=== PATIENT | female | born 1955 | race Hispanic/Latino ===

== ENCOUNTER 2019-10-28 10:05 | Outpatient (CLI) | payer MEDICAID, OTHER | END 2019-10-28 10:06 | disposition home or self-care (01) | LOC: LABHHL 10:05 | PROVIDERS: ATTEND Surgery | DX: N63.14 Unspecified lump in the right breast, lower inner quadrant (principal) | CPT/HCPCS: 88305; 88341; 88342; 88361 ==

== ENCOUNTER 2019-12-07 16:05 | Outpatient (CLI) | payer MEDICAID ==
--- NOTE | 2019-12-07 18:51 | XRay Report ---
CHEST 2 VIEWS INDICATION / CLINICAL INFORMATION: BREAST CANCER. COMPARISON: None available. FINDINGS: SUPPORT DEVICES: None. HEART / MEDIASTINUM: No significant abnormality. LUNGS / PLEURA: No significant pulmonary or pleural abnormality. No pneumothorax. ADDITIONAL FINDINGS: No significant additional findings. IMPRESSION: 1. No acute findings. Signer Name: Lina Bhatti MD Signed: 12/07/2019 6:47 PM Workstation Name: [id number]
== END 2019-12-07 16:06 | disposition home or self-care (01) ==
LOC: XRAY 16:05
PROVIDERS: ATTEND Surgery
DX: C50.919 Malignant neoplasm of unspecified site of unspecified female breast (principal)
CPT/HCPCS: 71046

== ENCOUNTER 2019-12-27 07:11 | Day surgery (SDC) | payer MEDICAID ==
[2019-12-27] MEDS ORDERED: ceFAZolin/STERILE WATER 2 GM/20 ML SYRINGE IV NR (08:00)
--- NOTE | 2019-12-27 08:05 | Anesthesia Day of Surgery ---
Anesthesia Day of Surgery - Day of Surgery Patient Examined: Yes Patient H&P Reviewed: Yes Patient is NPO: Yes
--- NOTE | 2019-12-27 08:07 | Anesthesia Consultation ---
Anesthesia Consult and Med Hx Date of service: 12/27/19 - Airway Anesthetic Teeth Evaluation: Good, Partials ROM Head & Neck: Adequate Mental/Hyoid Distance: Adequate Mallampati Class: Class III Intubation Access Assessment: Probably Good - Pre-Operative Health Status ASA Pre-Surgery Classification: ASA2 Proposed Anesthetic Plan: General (MAC; GA if needed), MAC - Pulmonary Hx Smoking: Yes (SINCE AGE 40; DOWN TO 1-2CIG/DAY) Hx Respiratory Symptoms: No (Mild pulmonary HTN) COPD: Yes - Cardiovascular System Hx Hypertension: Yes (SINCE 1979. ECHO [id number]) - Central Nervous System Hx Back Pain: Yes (? RA; denies neck issues) Hx Psychiatric Problems: (POSSIBLE???) - Endocrine Hx Liver Disease: Yes (Hep C) - Other Systems Hx Alcohol Use: No Hx Substance Use: No Hx Cancer: Yes
[2019-12-27] MEDS ORDERED: LIDOCAINE MPF (2%) 20 MG/1 ML VIAL 5 ML ONE (08:33)
[2019-12-27] MEDS ORDERED: fentaNYL 100 MCG/2 ML INJ ONE (08:33)
[2019-12-27] MEDS ORDERED: PROPOFOL 200 MG/20 ML VIAL IV ONE (08:34)
[2019-12-27] MEDS ORDERED: ONDANSETRON 4 MG/2 ML INJ ONE (08:35)
[2019-12-27] MEDS ORDERED: dexAMETHasone 20 MG/5 ML VIAL ONE (08:35)
[2019-12-27] MEDS ORDERED: MIDAZOLAM 2 MG/2 ML INJ IV NR (09:00)
[2019-12-27] MEDS ORDERED: LACTATED RINGERS 1,000 ML IV SCH (09:00)
[2019-12-27] MEDS ORDERED: HEPARIN 10,000 UNITS/10 ML VIAL ONE (09:09)
[2019-12-27] MEDS ORDERED: LIDOCAINE (1%) 10 MG/1 ML VIAL 20 ML MDV ONE (09:09)
[2019-12-27] MEDS ORDERED: BUPIVACAINE/PF (0.25%) 2.5 MG/ML 30 ML VIAL INFILTRATI ONE ×3 (09:09→10:00)
[2019-12-27] MEDS ORDERED: SODIUM CHLORIDE 0.9% 100 ML ONE (09:10)
[2019-12-27] MEDS ORDERED: ePHEDrine SULFATE 50 MG/1 ML INJ ONE (09:51)
[2019-12-27] MEDS ORDERED: HEPARIN 10,000 UNITS/10 ML VIAL IV ONE (09:59)
[2019-12-27] MEDS ORDERED: SODIUM CHLORIDE 0.9% 100 ML IVPB IV ONE (10:00)
[2019-12-27] MEDS ORDERED: SODIUM CHLORIDE 0.9% IRR 1,500 ML BOTTLE IR ONE (10:01)
[2019-12-27] MEDS ORDERED: LIDOCAINE (1%) 10 MG/1 ML VIAL 20 ML MDV INFILTRATI ONE (10:01)
[2019-12-27] MEDS ORDERED: KETOROLAC 30 MG/1 ML INJ ONE (10:30)
--- NOTE | 2019-12-27 10:46 | Short Stay Summary ---
Short Stay Documentation Date of service: 12/27/19 - History Principal diagnosis: right breast cancer H&P: obtained from office - Allergies and Medications Current Medications: Allergies No Known Allergies Allergy (Verified 12/23/19 10:58) Home Medications Medication Instructions Recorded Confirmed Last Taken Type HYDROcodone/APAP 5-325 [[place] 1 each PO Q6HR PRN #10 tablet 03/04/14 12/27/19 Unknown Rx 5/325 mg] Ascorbic Acid [Vitamin C] 1,000 mg PO DAILY 12/23/19 12/27/19 12/26/19 08:00 History Aspirin 325 mg PO QDAY 12/23/19 12/27/19 12/22/19 08:00 History Calcium Carbonate [Oscal 1250MG 1,250 mg PO DAILY 12/23/19 12/27/19 12/26/19 08:00 History TAB] Cyanocobalamin (Vitamin B-12) 1,000 mcg PO DAILY 12/23/19 12/27/19 12/26/19 08:00 History [Vitamin B-12] Ferrous Sulfate [Feosol] 325 mg PO QDAY 12/23/19 12/27/19 12/26/19 08:00 History Losartan [Cozaar] 50 mg PO QDAY 12/23/19 12/27/19 12/26/19 08:00 History Magnesium 250 mg PO DAILY 12/23/19 12/27/19 12/26/19 08:00 History Vitamin E 400 unit PO DAILY 12/23/19 12/27/19 12/26/19 08:00 History hydroCHLOROthiazide [HCTZ] 25 mg PO QDAY 12/23/19 12/27/19 12/26/19 08:00 History Active Medications Cefazolin Sodium (Ancef/Sterile Water 2 Gm/20 Ml) 2 gm IV PREOP NR Stop: 12/27/19 21:00 Lactated Ringer's (Lactated Ringers) 1,000 mls @ 100 mls/hr IV DIRECT [place] Last Admin: 12/27/19 08:25 Dose: 100 mls/hr Documented by: Midazolam HCl (Versed) 2 mg IV PREOP NR Stop: 12/27/19 23:59 Last Admin: 12/27/19 08:45 Dose: 2 mg Documented by: - Brief post op/procedure progress note Date of procedure: 12/27/19 Pre-op diagnosis: right breast cancer Post-op diagnosis: same Procedure: left internal jugular port a cath placement with mindray ultrasound guidance Anesthesia: GETA (LMA), local Findings: Good placement of port without PTX Surgeon: KENNETH HELMS Estimated blood loss: minimal Pathology: none Condition: stable - Hospital course Hospital course: Pt observed in PACU and discharged to home in stable condition - Disposition Condition at discharge: Good Disposition: DC-01 TO HOME OR SELFCARE Short Stay Discharge Plan Activity: no restrictions Diet: regular Wound: open to air, per your surgeon's advice Additional Instructions: SEE PRINTED INSTRUCTIONS Follow up with: PRIMARY CARE,MD [Primary Care Provider] - 7 Days KENNETH HELMS DO [Staff Physician] - 10 Days Prescriptions: HYDROcodone/APAP 5-325 [[place] 5-325 mg TAB] 1 each PO Q6HR PRN #10 tablet PRN Reason: Pain
[2019-12-27] MEDS ORDERED: PHENYLEPHRINE/NS 1,000 MCG/10 ML SYRINGE (OR USE) IV ONE (10:49)
[2019-12-27] MEDS ORDERED: SODIUM CHLORIDE FOR INHALATION NEBU 3 ML ONE (11:01)
--- NOTE | 2019-12-27 11:20 | XRay Report ---
CHEST 1 VIEW INDICATION: INSERTION OF PORT. COMPARISON: 12/07/2019 FINDINGS: Support devices: A left Yydssn-c-Jgsw has been inserted and the tip is in the right atrium. Heart: Within normal limits. Pulmonary vasculature: Normal. Lungs/Pleura: No acute air space or interstitial disease. Additional findings: None. IMPRESSION: 1. Satisfactory port placement. 2. No other significant finding. Signer Name: Michele Singer MD Signed: 12/27/2019 11:15 AM Workstation Name: [id number]
[2019-12-27] MEDS ORDERED: ALBUTEROL 2.5 MG/3 ML NEBU IH ONE (11:30)
[2019-12-27 11:36] VITALS: BP 133/69
--- NOTE | 2019-12-27 11:39 | Fluoroscopy Report ---
INTRAOPERATIVE FLUOROSCOPY: PORT PLACEMENT INDICATION / CLINICAL INFORMATION: LEFT BREAST CANCER. TECHNIQUE: Intraoperative spot images were obtained during the procedure. FINDINGS: Images show placement of a left IJ central venous port. Fluoroscopy Time: 0.4 minutes. Fluoroscopy Images: 2. Signer Name: Ar Oh MD Signed: 12/27/2019 11:34 AM Workstation Name: [id number]
--- NOTE | 2019-12-27 18:10 | Post Anesthesia Evaluation ---
- Post Anesthesia Evaluation Patient Participated: Yes Airway Patent: Yes Stable Respiratory Function: Yes Nausea/Vomiting: No Temp > 96.8F: Yes Pain Manageable: Yes Adequeate Hydration: Yes Anesthesia Complications: No Block Receding Appropriately: Not Applicable Patient on Ventilator: No
--- NOTE | 2019-12-30 09:14 | Operative Report ---
Operative Report Operative Report: Date of procedure: 12/27/19 Pre-op diagnosis: right breast cancer Post-op diagnosis: same Procedure: left internal jugular port a cath placement with mindray ultrasound guidance Anesthesia: GETA (LMA), local Findings: Good placement of port without PTX Surgeon: KENNETH HELMS Estimated blood loss: minimal Pathology: none Condition: stable - Hospital course Hospital course: Pt observed in PACU and discharged to home in stable condition HPI and indication: Patient is a 64-year-old female who has been diagnosed with right breast cancer with skin involvement. The patient is seen by oncology and deemed a candidate for chemotherapy. All of the risks associated with the procedure were discussed with the patient including but not limited to pneumothorax, infection, bleeding, malpositioned port, injury to other structures. The patient understands and all questions were answered. Consent was signed and placed on chart. Procedure in detail: The patient was identified in the preoperative area, taken back to operating room, placed on operating table in supine position. After anesthesia was induced both arms were tucked and upper chest and neck were prepped and draped in usual sterile fashion. A timeout was performed. The was placed in Trendelenburg position. Local anesthetic was infiltrated into the skin at the intended puncture site. The left subclavian vein was visualized on bedside ultrasound and one attempt was made at access. I could not access the vein and therefore the left internal jugular vein was identified on bedside ultrasound. The left internal jugular vein was accessed on the first stick. There was return of dark red, nonpulsatile blood. The wire was threaded under fluoroscopy without resistance and positioning confirmed. The needle was then removed. Using a 15 blade, an incision was made in the LEFT upper chest and dissection carried down through the skin and subcutaneous tissue using Bovie electrocautery. Hemostasis was achieved along the way. A pocket for the port was then created bluntly and with electrocautery. The catheter was flushed and tunneled from the pocket to the wire. A breakaway catheter/dilator sheath then inserted over the wire under fluoroscopy, and the wire and dilator removed. The catheter was then inserted through the breakaway catheter which was then removed. The catheter sat flush under the skin. Using continuous fluoroscopy, the catheter was pulled back until the tip was visualized in the right atrium. The catheter was then cut to size and the port attached in the usual fashion. The port was then sutured into place to the pre-pectoral fascia using 2-0 Vicryl interrupted sutures. The wound was irrigated and hemostasis ensured. The port was tested with heparinized saline and there was return of blood and it flushed easily. The port was then instilled with 3000 units of straight heparin. The deep dermal layer was then closed with interrupted 3-0 Vicryl stitches. The skin incisions were closed with 4-0 Monocryl subcuticular stitches and skin glue. Intraoperative chest x-ray did show good positioning of the port, without evidence of pneumothorax At the end of the case, all sponge, instrument, sharp counts were correct 2. The patient was awoken from anesthesia and taken to PACU in stable condition.
== END 2019-12-27 12:35 | disposition home or self-care (01) ==
LOC: OR 07:11
PROVIDERS: ATTEND Surgery
DX: C50.411 Malignant neoplasm of upper-outer quadrant of right female breast (principal); C50.111 Malignant neoplasm of central portion of right female breast; C50.811 Malignant neoplasm of overlapping sites of right female breast; I10 Essential (primary) hypertension; J44.9 Chronic obstructive pulmonary disease, unspecified; M06.9 Rheumatoid arthritis, unspecified; F17.210 Nicotine dependence, cigarettes, uncomplicated; Z79.899 Other long term (current) drug therapy; Z79.82 Long term (current) use of aspirin; Z90.710 Acquired absence of both cervix and uterus; Z80.3 Family history of malignant neoplasm of breast; Z80.41 Family history of malignant neoplasm of ovary
CPT/HCPCS: 36561; 71045; 77001; C1788; J0690; J1100; J1644; J1885; J2250; J2370; J2405; J2704; J3010; J7120

== ENCOUNTER 2020-08-07 11:32 | Day surgery (SDC) | payer MEDICARE ==
[~2020-08-07 11:32] MED LIST: CELECOXIB 200 MG CAP PO NR; GABAPENTIN 300 MG CAP PO NR; LACTATED RINGERS 1,000 ML IV SCH; MAGNESIUM OXIDE 400 MG TAB PO SCH; MIDAZOLAM 2 MG/2 ML INJ IV NR; SCOPOLAMINE TRANSDERMAL PATCH 72 HR TD NR; ceFAZolin/Water 2 GM/20 ML 2 GM/20 ML SYRINGE IV SCH
[2020-08-07] MEDS ORDERED: HYDROmorphone 1 MG/1 ML INJ IV PRN (12:22)
--- NOTE | 2020-08-07 12:22 | Anesthesia Consultation ---
Anesthesia Consult and Med Hx Date of service: 08/07/20 - Airway Anesthetic Teeth Evaluation: Poor, Partials (upper) ROM Head & Neck: Adequate Mental/Hyoid Distance: Adequate Mallampati Class: Class II Intubation Access Assessment: Probably Good - Pulmonary Exam CTA: Yes - Cardiac Exam Cardiac Exam: RRR - Pre-Operative Health Status ASA Pre-Surgery Classification: ASA3 Proposed Anesthetic Plan: General - Pulmonary Hx Smoking: Yes (X24 YRS- DOWN TO 1-2CIG/DAY) Hx Respiratory Symptoms: No Hx Sleep Apnea: No (JERRY PRE SCREEN LOW RISK) - Cardiovascular System Hx Hypertension: Yes (took atenolol this morning) Hx Heart Attack/AMI: No Hx Percutaneous Transluminal Coronary Angioplasty (PTCA): No Hx Cardia Arrhythmia: No - Central Nervous System CVA: No Hx Back Pain: Yes (WITH MILD RT LEG WEAKNESS) - Gastrointestinal Hx Gastroesophageal Reflux Disease: No - Endocrine 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
--- NOTE | 2020-08-07 12:22 | Anesthesia Day of Surgery ---
Anesthesia Day of Surgery - Day of Surgery Patient Examined: Yes Patient H&P Reviewed: Yes Patient is NPO: Yes
[2020-08-07] MEDS ORDERED: propofoL 200 MG/20 ML VIAL IV ONE (13:56)
[2020-08-07] MEDS ORDERED: LIDOCAINE MPF (2%) 20 MG/1 ML VIAL 5 ML ONE (13:56)
[2020-08-07] MEDS ORDERED: HYDROmorphone 1 MG/1 ML INJ ONE (13:56)
[2020-08-07] MEDS ORDERED: ROCURONIUM 50 MG/5 ML INJ IV ONE (13:57)
[2020-08-07] MEDS ORDERED: BUPIVACAINE/PF (0.5%) 5 MG/1 ML 30 ML VIAL INFILTRATI ONE ×2 (14:02→15:46)
[2020-08-07] MEDS ORDERED: LIDOCAINE (1%) 10 MG/1 ML VIAL 20 ML MDV ONE (14:02)
[2020-08-07] MEDS ORDERED: SODIUM CHLORIDE 0.9% 100 ML ONE (15:29)
[2020-08-07] MEDS ORDERED: HEPARIN 10,000 UNITS/10 ML VIAL ONE (15:29)
[2020-08-07] MEDS ORDERED: LIDOCAINE (1%) 10 MG/1 ML VIAL 20 ML MDV INFILTRATI ONE (15:46)
[2020-08-07] MEDS ORDERED: WATER FOR IRRIG STERILE 1,500 ML BOTTLE IR ONE (15:47)
[2020-08-07] MEDS ORDERED: SODIUM CHLORIDE 0.9% IRR 1,500 ML BOTTLE IR ONE (15:47)
[2020-08-07] MEDS ORDERED: SODIUM CHLORIDE 0.9% 100 ML IVPB IV ONE (16:35)
[2020-08-07] MEDS ORDERED: HEPARIN 10,000 UNITS/10 ML VIAL IV ONE (16:35)
[2020-08-07] MEDS ORDERED: KETOROLAC 30 MG/1 ML INJ ONE (16:59)
[2020-08-07] MEDS ORDERED: ONDANSETRON 4 MG/2 ML INJ ONE (16:59)
[2020-08-07] MEDS ORDERED: GLYCOPYRROLATE 0.4 MG/2 ML INJ ONE (16:59)
[2020-08-07] MEDS ORDERED: NEOSTIGMINE 10MG/10 ML INJ MDV ONE (17:00)
[2020-08-07] MEDS ORDERED: LACTATED RINGERS 1,000 ML ONE (17:02)
--- NOTE | 2020-08-07 17:16 | Short Stay Summary ---
Short Stay Documentation Date of service: 08/07/20 - History Principal diagnosis: left inguinal hernia, right breast cancer H&P: obtained from office - Allergies and Medications Current Medications: Allergies No Known Allergies Allergy (Verified 12/23/19 10:58) Home Medications Medication Instructions Recorded Confirmed Last Taken Type Ascorbic Acid [Vitamin C] 1,000 mg PO DAILY 12/23/19 08/07/20 08/06/20 06:00 History Aspirin 325 mg PO QDAY 12/23/19 08/07/20 07/30/20 06:00 History Calcium Carbonate [Oscal 1250MG 1,250 mg PO DAILY 12/23/19 08/07/20 08/06/20 06:00 History TAB] Cyanocobalamin (Vitamin B-12) 1,000 mcg PO DAILY 12/23/19 08/07/20 08/06/20 06:00 History [Vitamin B-12] Ferrous Sulfate [Feosol 325 MG tab] 325 mg PO QDAY 12/23/19 08/07/20 08/06/20 08:00 History Losartan [Cozaar] 50 mg PO QDAY 12/23/19 08/07/20 08/07/20 06:00 History Magnesium 250 mg PO DAILY 12/23/19 08/07/20 08/06/20 06:00 History Vitamin E 400 unit PO DAILY 12/23/19 08/07/20 08/06/20 06:00 History hydroCHLOROthiazide [HCTZ] 25 mg PO QDAY 12/23/19 08/07/20 07/30/20 06:00 History HYDROcodone/APAP 5-325 [[place] 1 each PO Q6HR PRN #10 tablet 12/27/19 08/07/20 12/24/19 08:00 Rx 5-325 mg TAB] atenoloL [Tenormin] 50 mg PO DAILY 08/06/20 08/07/20 08/07/20 06:00 History Active Medications Celecoxib (Celebrex) 200 mg PO PREOP NR Stop: 08/07/20 23:59 Last Admin: 08/07/20 12:20 Dose: 200 mg Documented by: Gabapentin (Gabapentin) 300 mg PO PREOP NR Stop: 08/07/20 23:59 Last Admin: 08/07/20 12:20 Dose: 300 mg Documented by: Hydromorphone HCl (Dilaudid) 0.5 mg IV Q10MIN PRN PRN Reason: Pain , Severe (7-10) Lactated Ringer's (Lactated Ringers) 1,000 mls @ 100 mls/hr IV DIRECT [place] Stop: 08/07/20 23:59 Last Admin: 08/07/20 12:45 Dose: 100 mls/hr Documented by: Cefazolin Sodium (Ancef/Sterile Water 2 Gm/20 Ml) 2 gm in 20 mls @ 80 mls/hr IV PREOP [place] Stop: 08/07/20 23:59 Magnesium Oxide (Mag-Ox) 400 mg PO PREOP [place] Stop: 08/07/20 23:59 Last Admin: 08/07/20 12:20 Dose: 400 mg Documented by: Midazolam HCl (Versed) 2 mg IV PREOP NR Stop: 08/07/20 23:59 Scopolamine (Transderm-Scop) 1 each TD PREOP NR Stop: 08/07/20 23:59 Last Admin: 08/07/20 12:20 Dose: 1 each Documented by: - Brief post op/procedure progress note Date of procedure: 08/07/20 Pre-op diagnosis: Left inguinal hernia, right breast cancer Post-op diagnosis: same Procedure: 1. robotic assisted left inguinal hernia repair with mesh 2. revision of left sided port Anesthesia: GETA, local Findings: 1. direct inguinal hernia containing omentum and lipoma, repair with medium Bard 3D max mesh 2. Port flipped in pocket, blood aspirated easily and port flushed easily Surgeon: KENNETH HELMS (Salome Shepard, TIER TRUCK DRIVER -assist) Estimated blood loss: minimal Pathology: none Condition: stable - Hospital course Hospital course: Pt observed in PACU and discharged to home in stable condition when criteria met - Disposition Condition at discharge: Good Short Stay Discharge Plan Activity: other (NO HEAVY LIFTING FOR 4-6 WEEKS, NOTHING MORE THAN 15 LBS) Diet: regular Wound: open to air, other (SEE ADDITIONAL INSTRUCTIONS SECTION) Additional Instructions: Activity: You are encouraged to walk and may go up and down the steps. Do not do any heavy lifting greater than 15-20lbs for the next 4-[address] if you are taking prescription, narcotic pain medications. Showering: You may shower in 1 day. Pat incision dry. Do not submerge incisions in bathtubs, hot tubs, pools for 2 weeks. Wound care instructions: There is glue on your incision which will fall off on its own. Pain medications: You are encouraged to use over the counter pain medications like Tylenol as directed on the bottle. If your pain is not controlled with these medications, you have been given a prescription for stronger pain medications. Please use as directed. Take the ibuprofen, celebrex, and gabapentin as prescribed, the prescriptions have been sent to your pharmacy. Reasons to call Surgeons office: If you have fevers >100.4 If you are having increasing abdominal pain or vomiting If you have pain that is not controlled with prescription pain medications If you have drainage if pus or redness around the incisions. Follow up with: PRIMARY CARE, [Primary Care Provider] - 7 Days KENNETH HELMS DO [Staff Physician] - 14 Days Prescriptions: Celecoxib [celeBREX] 200 mg PO BID #10 capsule Gabapentin 300 mg PO Q8HR #30 capsule Ibuprofen [Motrin 800 MG tab] 800 mg PO Q8HR #30 tablet oxyCODONE /ACETAMINOPHEN [Percocet 5/325] 1 tab PO Q6HR PRN #20 tablet PRN Reason: Pain , Severe (7-10)
--- NOTE | 2020-08-07 17:49 | Operative Report ---
Operative Report Operative Report: Date of procedure: 08/07/20 Pre-op diagnosis: Left inguinal hernia, right breast cancer Post-op diagnosis: same Procedure: 1. robotic assisted left inguinal hernia repair with mesh 2. revision of left sided port Anesthesia: ERINA, local Findings: 1. direct inguinal hernia containing omentum and lipoma, repair with medium Bard 3D max mesh 2. Port flipped in pocket, blood aspirated easily and port flushed easily Surgeon: KENNETH HELMS (Salome Shepard, DIRT SUPERVISOR -assist) Estimated blood loss: minimal Pathology: none Condition: stable Hospital course: Pt observed in PACU and discharged to home in stable condition when criteria met HPI and indication: Patient is a 65-year-old female with history of stage IV right breast cancer. The patient had undergone a left sided port placement to initiate chemotherapy at the beginning 2019 and was then lost to follow-up du e to patient noncompliance. The patient also had a left inguinal hernia which was reducible for which repair was being delayed until chemotherapy was complete. The patient represented to the office with complaints of persistent discomfort at the site of the left inguinal hernia along with concerns about her port. Upon examination the cutaneous portion of the port was flipped and unable to be repositioned in the office. The case was discussed with Dr. Henriquez the patient's breast surgeon and Dr. Ross the patient's oncologist. It was recommended that the port be revised as the patient would need chemotherapy restarted in the next several weeks. Due to the patient's increasing discomfort at the left inguinal hernia site it was decided that this should be repaired prior to the initiation of chemotherapy. I discussed all risk benefits, alternatives to surgery with the patient and questions were answered. Consent was obtained for robotic assisted left inguinal hernia repair with mesh, possible removal/revision/replacement of left-sided Port-A-Cath. Procedure in detail: The patient was identified in the preoperative area, taken back to the operating room and placed on the operating room table in supine position. After anesthesia was induced a Wong catheter was sterilely placed by the circulating nurse. Both arms were then tucked and all bony prominences padded appropriately. The left groin hair was clipped and the abdomen and left groin prepped and draped in the usual sterile fashion. A timeout was performed. Local anesthetic was infiltrated to skin at the intended incision sites. A jay jay incision was made at the umbilicus through which a Veress needle was inserted. The skin was tented up using towel clips and the Veress needle inserted. The Veress needle position was confirmed using the saline drop test and the abdomen insufflated to 15 mmHg. A supraumbilical incision was then made using an 11 blade through which a 5 mm Optiview trocar was placed. The abdomen was inspected and there was no underlying injury to any of the abdominal structures. The Veress needle was removed. The patient was placed in Trendelenburg and the pelvis inspected. There was an obvious left-sided inguinal hernia containing omental adhesions. An additional 8 mm right upper quadrant and left upper quadrant 8 mm robotic trochars were then placed under direct visualization. The 5 mm supraumbilical trocar was removed and replaced with a 12 mm balloon trocar under direct visualization. A Ray-Caryl was placed into the abdomen and the robot was then docked. A monopolar scissor was placed in arm #1 and a fenestrated bipolar in arm #2. The surgeon was then transferred to the console. A left-sided peritoneal flap was created approximately 6 cm from the left inguinal hernia. The peritoneum was gently scored with a monopolar scissor and the preperitoneal space entered. The preperitoneal space was carefully dissected in an avascular plane using a combination of electrocautery and blunt dissection. Great care was taken to identify the epigastric vessels and to protect them during the entire dissection. First the medial space was dissected and the pubic tubercle identified. The tissue overlying the pubic tubercle was bluntly dissected. I then proceeded to the lateral dissection which was done in a similar fashion. A direct inguinal hernia was encountered. The omental adhesions in the hernia were taken down using electrocautery. There was a large lipoma contained within the defect which was gently dissected using blunt dissection and completely reduced. The round ligament was cauterized with the bipolar and transected. The peritoneal dissection was carried down by dissecting through cremasteric fibers in order to ensure that the mesh would lay flat. Dissection of the femoral space was also performed in order to cover all 3 potential defects. Once the dissection was complete the pocket was checked for hemostasis which was carefully ensured. A left-sided Bard 3D max medium size mesh was then inserted into the abdomen along with suture material by the airplane first officer. The mesh was positioned in the usual fashion. The medial aspect of the mesh was sutured to the pubic tubercle using a 2-0 Vicryl interrupted stitch. The mesh was also fixated to the lateral abdominal wall using an interrupted 2-0 Vicryl stitch. Mesh was seen to lay flat and fit well in the pocket. An Angiocath was inserted lateral to the mesh in the preperitoneal space under direct visualization. The pressure in the abdomen was decreased to 10 mmHg. The peritoneum was then reapproximated using a running 3- 0 VLock suture and came together without tension. A tiny hole in the peritoneum was approximated using an interrupted 2-0 Vicryl stitch. There were no defects in the peritoneum and the mesh was completely covered. The robot was then undocked and the surgeon scrubbed back in. All sharp and suture material was removed under direct visualization. The intra-abdominal Ray-Caryl was also removed. The reduced omentum was checked for hemostasis was carefully ensured. There was no bleeding seen. The 12 mm port was removed and the fascia closed with interrupted 0 Vicryl sutures using the Sean Fernandez. The abdomen was then desufflated and all ports along with the angiocatheter removed. All incisions were once again infiltrated with local anesthetic and skin closed using 4-0 Monocryl subcuticular stitches and Dermabond. A left sided ilioinguinal nerve block was also performed. At the end of this portion of the case all sponge, instrument, sharp counts were correct x2. The patient remained stable. At this point the drapes were removed and the left upper chest was prepped and draped in the usual sterile fashion. The skin at the intended incision site was infiltrated with local anesthetic. An incision was made through the old scar using a 15 blade and dissection carried down through the skin and subcutaneous tissue using Bovie electrocautery until the port and catheter were encountered. The port was freed from the surrounding tissue and capsule using blunt dissection with a hemostat. Once the port was completely freed it was partially brought out of the wound and flipped into the correct position. The port was placed back into the pocket and tested with heparinized saline. The port returned blood easily and flushed with a heparinized saline without resistance. Because the port was still functional no further intervention was needed at this time. The port was instilled with 3000 units of undiluted heparin. The port was sutured to the underlying capsule using 2-0 Vicryl sutures in 2 positions. The pocket was checked for hemostasis which was ensured. The wound was irrigated with saline. The incision was then closed in a layered fashion. The deep dermal layer was closed with interrupted 3-0 Vicryl sutures. The skin was closed with a running 4-0 Monocryl subcuticular stitch and skin glue. Once the glue was dry a 2 x 2 gauze was applied over the incision and secured with a Tegaderm. At the end of the case all sponge, instrument, sharp counts were correct x2. The Wong catheter was removed. The patient was awoken from anesthesia extubated and taken to PACU in stable condition.
--- NOTE | 2020-08-07 18:12 | Post Anesthesia Evaluation ---
- Post Anesthesia Evaluation Patient Participated: Yes Airway Patent: Yes Stable Respiratory Function: Yes Nausea/Vomiting: No Temp > 96.8F: Yes Pain Manageable: Yes Adequeate Hydration: Yes Anesthesia Complications: No
[2020-08-07] MEDS ORDERED: ONDANSETRON 4 MG/2 ML INJ IV PRN (18:18)
[2020-08-07] MEDS ORDERED: oxyCODONE /ACETAMINOPHEN 5-325MG TAB PO PRN (18:19)
[2020-08-07 18:23] VITALS: BP 143/63
== END 2020-08-07 11:33 | disposition home or self-care (01) ==
LOC: OR 11:32
PROVIDERS: ATTEND Surgery
DX: K40.90 Unilateral inguinal hernia, without obstruction or gangrene, not specified as recurrent (principal); C50.911 Malignant neoplasm of unspecified site of right female breast; Z20.828 Contact with and (suspected) exposure to other viral communicable diseases; F17.210 Nicotine dependence, cigarettes, uncomplicated; I10 Essential (primary) hypertension; J44.9 Chronic obstructive pulmonary disease, unspecified; M06.9 Rheumatoid arthritis, unspecified; D64.9 Anemia, unspecified; Z79.899 Other long term (current) drug therapy; Z79.82 Long term (current) use of aspirin; Z90.710 Acquired absence of both cervix and uterus; Z98.890 Other specified postprocedural states; Z96.641 Presence of right artificial hip joint; Z80.3 Family history of malignant neoplasm of breast; Z80.41 Family history of malignant neoplasm of ovary
CPT/HCPCS: 36576; 49650; C1781; J0690; J1170; J1644; J1885; J2250; J2405; J2704; J2710; J7120; U0003

== ENCOUNTER 2020-09-03 13:18 | Outpatient (CLI) | payer MEDICARE ==
--- NOTE | 2020-09-03 14:48 | Cat Scan Report ---
CT pelvis wo con INDICATION: UNILATERAL INGUINAL HERNIA, W/O OBSTRUCTION OR GANGRENE. COMPARISON: None TECHNIQUE: Pelvic CT exam performed. All CT scans at this location are performed using CT dose reduct ion for ALARA by means of automated exposure control. FINDINGS: CT PELVIS: Genitourinary: No significant abnormality. The bladder appears within normal limits. Lymphatics: No lymphadenopathy. Vasculature: No significant abnormality. Visualized Bowel: No significant abnormality. Osseous Structures: Advanced left hip osteoarthritis with remodeling of the femoral head. Additional Findings: There is a 4 cm left inguinal lesion which is nonspecific. Streak artifact from the right hip arthroplasty makes it difficult to determine the true Hounsfield units of the lesion. IMPRESSION: 1. Nonspecific left inguinal lesion measuring 4 cm(Image quality of the left inguinal lesion is degr aded by streak artifact.). Recommend ultrasound for further evaluation. 2. Advanced left hip osteoarthritis. Signer Name: Rojas Lopez MD Signed: 09/03/2020 2:43 PM Workstation Name: [id number]
== END 2020-09-03 13:19 | disposition home or self-care (01) ==
LOC: CT 13:18
PROVIDERS: ATTEND Surgery
DX: K40.90 Unilateral inguinal hernia, without obstruction or gangrene, not specified as recurrent (principal); M16.12 Unilateral primary osteoarthritis, left hip; Z96.649 Presence of unspecified artificial hip joint
CPT/HCPCS: 72192